=== PATIENT | female | born 1975 | race Caucasian/White ===

== ENCOUNTER 2022-09-14 07:25 | Observation (INO) | payer BC ==
[2022-09-14] MEDS ORDERED: Prochlorperazine 10 MG/2 ML VIAL ONE (07:54)
[2022-09-14] MEDS ORDERED: diphenhydrAMINE 50 MG/ML VIAL ONE (07:54)
[2022-09-14 08:32] LABS: #Basophils 0.1 10x3/uL (0.0-0.2); #Eosinphils 0.2 10x3/uL (0.0-0.5); #Monocytes 0.6 10x3/uL (0.0-1.1); #Neutrophils 7.2 10x3/uL (1.5-8.4); %Basophils 0.5 % (0.0-2.0); %Eosinophils 1.9 % (0.0-6.0); %Lymphocytes 14.8 % (18.0-47.0); %Monocytes 6.1 % (0.0-10.0); %Neutrophils 75.9 % (40.0-75.0); Hemoglobin 12.9 g/dL (12.0-15.5); Mean Corpuscular Hemoglobin 31.5 pg (27.0-33.0); Mean Corpuscular Volume 87.5 fl (81.6-98.3); Mean Platelet Volume 10.4 fl (7.4-10.4); Platelet Count 328 10x3/uL (150-450); RBC Distribution Width 12.7 % (11.5-14.5); Red Blood Cell (RBC) Count 4.09 10x6/uL (3.90-5.03); White Blood Cell (WBC) Count 9.4 10x3/uL (3.5-10.5)
[2022-09-14 08:36] LABS: BHCG - Serum Negative (NEGATIVE); Pregs Control Background? CLEAR/WHITE (CLR/WHITE); Pregs Control Bar Appear? YES (CONTROL BAR)
[2022-09-14 08:38] LABS: ALT (SGPT) 15 U/L (8-55); AST (SGOT) 17 U/L (5-34); Albumin 3.7 g/dL (3.5-5.0); Alkaline Phosphatase 43 U/L (40-110); Anion Gap 17 mmol/L (10-20); BUN (Urea Nitrogen) 9 mg/dL (7.0-18.7); Bilirubin, Total 0.6 mg/dL (0.2-1.2); Calc. Creatinine Clearance 0 mL/min (70-130); Calcium 8.8 mg/dL (7.8-10.44); Carbon Dioxide 22 mmol/L (22-29); Chloride 107 mmol/L (98-107); Estimated GFR 97; Globulin 2.3 g/dL (2.4-3.5); Glucose 179 mg/dL (70-105); Magnesium 1.3 mg/dL (1.6-2.6); Potassium 3.3 mmol/L (3.5-5.1); Sodium 143 mmol/L (136-145)
[2022-09-14] MEDS ORDERED: Diazepam 10 MG/2 ML SYRINGE ONE (09:28)
[2022-09-14] MEDS ORDERED: Magnesium 2 GM/50 ML BAG (IN WATER) ONE (09:29)
[2022-09-14] MEDS ORDERED: Potassium Chloride 20 MEQ/100 ML PREMIX BAG ONE (09:29)
[2022-09-14] MEDS ORDERED: Haloperidol Lactate 5 MG/ML VIAL ONE (10:47)
[2022-09-14] MEDS ORDERED: Iopamidol 300 61% 100 ML VIAL FS ONE (11:03)
[2022-09-14 11:37] LABS: Bilirubin Neg (Negative); Blood, Urine Negative (Negative); Glucose, Urine (Dipstick) Normal (Negative); Ketone, Urine Negative (Negative); Leukocyte 25 (Negative); Nitrite Negative (Negative); Protein, Urine (Dipstick) Negative (Neg-Trace); Specific Gravity, Urine 1.015 (1.005-1.030); Urobilinogen Normal mg/dL (Less than 2)
[2022-09-14 11:42] LABS: Clarity Hazy (Clear)
[2022-09-14 11:46] LABS: RBC/HPF 0-3 HPF (0-3); Squamous Epithelial 0-3 HPF (0-3); WBC/HPF 0-3 HPF (0-3)
[2022-09-14 11:47] LABS: Bacteria/HPF Rare-Few HPF (None Seen)
[2022-09-14] MEDS ORDERED: Ondansetron PF 4 MG/2 ML Vial ONE (14:50)
[2022-09-14] MEDS ORDERED: Acetaminophen 325 MG TAB PO PRN (15:51)
[2022-09-14] MEDS ORDERED: Ondansetron PF 4 MG/2 ML Vial IVP PRN (15:51)
[2022-09-14] MEDS ORDERED: Ondansetron ODT 4 MG TAB PO PRN ×2 (15:51→16:10)
[2022-09-14] MEDS ORDERED: Scopolamine 1.5 mg/72 hour Patch TD SCH (16:00)
[2022-09-14] MEDS ORDERED: Sodium Chloride 0.9% 1,000 ML IV SCH (16:00)
[2022-09-14] MEDS ORDERED: Lorazepam 1 MG TAB PO PRN (16:10)
[2022-09-14] MEDS ORDERED: Lorazepam 2 MG/ML VIAL IM PRN (16:10)
[2022-09-14] MEDS ORDERED: Electrolyte Replacement Protocol 1 EACH FS SCH (16:15)
[2022-09-14 17:00] LABS: #Monocytes 0.3 10x3/uL (0.0-1.1); #Neutrophils 11.9 10x3/uL (1.5-8.4); %Basophils 0.2 % (0.0-2.0); %Lymphocytes 5.3 % (18.0-47.0); %Monocytes 2.5 % (0.0-10.0); %Neutrophils 91.4 % (40.0-75.0); Hemoglobin 10.9 g/dL (12.0-15.5); Mean Corpuscular Hemoglobin 31.4 pg (27.0-33.0); Mean Corpuscular Volume 89.6 fl (81.6-98.3); Mean Platelet Volume 10.2 fl (7.4-10.4); Platelet Count 241 10x3/uL (150-450); RBC Distribution Width 13.2 % (11.5-14.5); Red Blood Cell (RBC) Count 3.47 10x6/uL (3.90-5.03)
[2022-09-14] MEDS ORDERED: Thiamine HCl 200 MG/2 ML VIAL SLOW IVP SCH ×2 (17:00→18:00)
[2022-09-14] MEDS ORDERED: Lorazepam 1 MG TAB PO SCH ×2 (17:00→18:00)
[2022-09-14 17:07] LABS: ALT (SGPT) 14 U/L (8-55); AST (SGOT) 17 U/L (5-34); Albumin 3.2 g/dL (3.5-5.0); Alkaline Phosphatase 39 U/L (40-110); Anion Gap 12 mmol/L (10-20); BUN (Urea Nitrogen) 9 mg/dL (7.0-18.7); Bilirubin, Direct 0.2 mg/dL (0.1-0.3); Bilirubin, Total 0.4 mg/dL (0.2-1.2); Calc. Creatinine Clearance 0 mL/min (70-130); Calcium 7.9 mg/dL (7.8-10.44); Carbon Dioxide 25 mmol/L (22-29); Chloride 108 mmol/L (98-107); Estimated GFR 108; Globulin 1.9 g/dL (2.4-3.5); Glucose 122 mg/dL (70-105); Phosphorus 3.7 mg/dL (2.3-4.7); Potassium 3.8 mmol/L (3.5-5.1); Protein, Total 5.1 g/dL (6.0-8.3); Sodium 141 mmol/L (136-145)
[2022-09-14] MEDS ORDERED: Folic Acid 1 MG TAB PO SCH (17:30)
[2022-09-14] MEDS ORDERED: Magnesium 2 GM/50 ML(in water) 2 GM in Premix Bag 1 BAG IVPB SCH (17:30)
[2022-09-14] MEDS ORDERED: Multivit, Therapeutic 1 TAB PO SCH (17:30)
[2022-09-14] MEDS ORDERED: Electrolyte Replacement Protocol FS PRN (17:30)
[2022-09-14 17:48] LABS: Syphilis Antibody Nonreactive (Nonreactive); Syphilis Antibody Index 0.05 S/CO (<1.00 Non-Reactive)
[2022-09-14] MEDS ORDERED: Famotidine/PF 20 mg/2ml Vial SLOW IVP SCH (21:00)
[2022-09-15] MEDS ORDERED: Folic Acid 1 MG TAB PO SCH (09:00)
[2022-09-15] MEDS ORDERED: Multivit, Therapeutic 1 TAB PO SCH (09:00)
[2022-09-15] MEDS ORDERED: Lorazepam 1 MG TAB PO PRN (16:10)
[2022-09-16] MEDS ORDERED: Lorazepam 1 MG TAB PO PRN (16:10)
[2022-09-16] MEDS ORDERED: Lorazepam 0.5 MG TAB PO SCH ×2 (17:00→18:00)
[2022-09-17] MEDS ORDERED: Lorazepam 0.5 MG TAB PO PRN (16:10)
[2022-09-17] MEDS ORDERED: Thiamine 100 MG TAB PO SCH (18:00)
== END 2022-09-14 17:38 | disposition home or self-care (01) ==
LOC: CSHERS 07:25 → CSHTELE 17:06
PROVIDERS: ADMIT Internal Medicine; ATTEND Internal Medicine
DX: R11.2 Nausea with vomiting, unspecified (principal); E86.0 Dehydration; K31.84 Gastroparesis; E87.6 Hypokalemia; F11.20 Opioid dependence, uncomplicated; E83.42 Hypomagnesemia; Z88.8 Allergy status to other drugs, medicaments and biological substances
CPT/HCPCS: 36415; 71045; 74177; 80053; 81003; 81015; 82248; 83735; 84100; 84703; 85025; 86780; 93005; 96361; 96365; 96366; 96368; 96375; G0378; J0780; J1200; J1630; J2405; J3360; J3475; J3480; Q9967